=== PATIENT | female | born 1995 | race Two or more races ===

== ENCOUNTER 2024-01-10 10:40 | Emergency (ER) | payer OTHER ==
[~2024-01-10] VITALS: Ht 167.6 cm; Wt 59.0 kg
[2024-01-10] MEDS ORDERED: ONDANSETRON 4 MG TAB.RAPDIS ONE (11:34)
[2024-01-10] MEDS: ONDANSETRON 4 MG TAB.RAPDIS SL ONE (11:36)
[2024-01-10 11:48] LABS: APPEARANCE,URINE TURBID (CLEAR); BILIRUBIN,URINE 1+ (NEGATIVE); BLOOD, URINE 2+ Ery/uL (NEGATIVE); COLOR,URINE DARK YELLOW (YELLOW); KETONES,URINE TRACE mg/dL (NEGATIVE); LEUKOCYTE ESTERASE ,URINE 2+ (NEGATIVE); NITRITE, URINE NEGATIVE (NEGATIVE); PREGNANCY TEST URINE QUAL NEGATIVE (NEGATIVE); PROTEIN,URINE 2+ mg/dl (NEGATIVE); UGLUCOSE NEGATIVE (NEGATIVE)
[2024-01-10 11:49] LABS: ADD URINE CULTURE YES; BACTERIA,URINE Moderate /HPF (None Seen); SQUAMOUS EPITHELIAL CELL,UR Few /HPF (None Seen); WBC,URINE 21-50 /HPF (0-3)
[2024-01-10] MEDS ORDERED: ONDA4TAB11 PO (12:12)
[2024-01-10] MEDS ORDERED: CEPH-570 PO (12:12)
[2024-01-10 12:25] VITALS: BP 124/75; TEMP 98; O2SAT 99
== END 2024-01-10 12:25 | disposition home or self-care (01) ==
LOC: ER 10:51
DX: N39.0 Urinary tract infection, site not specified (principal); R11.2 Nausea with vomiting, unspecified; R30.0 Dysuria; R10.13 Epigastric pain
CPT/HCPCS: 99283; 87086; 84703; 81001; Q0162